=== PATIENT | male | born 2000 | race Caucasian/White ===

== ENCOUNTER 2018-09-16 23:24 | Emergency (ER) | payer OTHER ==
[~2018-09-16] VITALS: Ht 180.3 cm; Wt 108.9 kg
[~2018-09-16 23:24] MED LIST: AUGMENTIN 400 M1 CTB PO; CLARITIN10 MG PO; MEDROL DOSEPAK4 MG PO; MOTRIN CHI100 MG/5 M PO; MOTRIN400 MG PO; NAPROSYN500 MG PO; NKHM; TYLENOL500 MG PO
[2018-09-16 23:27] VITALS: BP 121/94
[2018-09-17] MEDS ORDERED: PREDNISONE50 MG PO (01:01)
[2018-09-17] MEDS ORDERED: CYCLOBENZAPRINE10 MG PO (01:01)
[2018-09-17] MEDS ORDERED: NAPROSYN500 MG PO (01:01)
== END 2018-09-17 01:46 | disposition home or self-care (01) ==
LOC: ED 23:24
DX: S40.021A Contusion of right upper arm, initial encounter (principal); M62.830 Muscle spasm of back; Z79.899 Other long term (current) drug therapy; V86.99XA Unspecified occupant of other special all-terrain or other off-road motor vehicle injured in nontraffic accident, initial encounter; Y93.89 Activity, other specified; Y92.89 Other specified places as the place of occurrence of the external cause; Y99.8 Other external cause status

== ENCOUNTER → 2020-02-26 | Outpatient (CLI) | payer BC ==
[~2020-02-26] MED LIST changes: +CYCLOBENZAPRINE10 MG PO; +PREDNISONE50 MG PO
== END | disposition home or self-care (01) ==
LOC: COVID19 00:18
DX: R06.02 Shortness of breath (principal); Z20.828 Contact with and (suspected) exposure to other viral communicable diseases

== ENCOUNTER → 2020-06-08 | Outpatient (CLI) | payer BC ==
[2020-06-08 07:01] LABS: HEMATOCRIT 46.1 % (42.0-52.0); MEAN CELL VOLUME 85.4 fl (80.0-94.0); MEAN CORPUSCULAR HGB 28.1 pg (27.0-31.0); MEAN PLATELET VOLUME 9.1 fl (9.6-12.3); RED BLOOD COUNT 5.4 10*6/uL (4.50-5.90); RED CELL DISTRI WIDTH 12.4 % (0-14.5); WHITE BLOOD COUNT 12.5 10*3/uL (4.8-10.8)
[2020-06-08 07:28] LABS: ALBUMIN 4.4 gm/dl (3.1-4.5); BUN 15 mg/dl (7-24); CHLORIDE 108 mmol/L (98-107); POTASSIUM 4.6 mmol/L (3.5-5.1); SODIUM 140 mmol/L (136-145)
[2020-06-08 07:37] LABS: ALKALINE PHOSPHATASE 87 U/L (45-117); CHOLESTEROL 187 mg/dL (<200); HDL CHOLESTEROL 37 mg/dl (40-60); LDL CHOLESTEROL 99 mg/dL (9-159); SGOT/AST 24 IU/L (3-35); SGPT/ALT 61 U/L (12-78); TOTAL PROTEIN 8.3 gm/dL (6.4-8.2); TRIGLYCERIDES 255 mg/dl (<150); VLDL CHOLESTEROL 51 mg/dL (6-40)
[2020-06-09 08:11] LABS: RHEUMATOID ARTHRITIS FACTOR <10.0 IU/mL (0.0-13.9)
== END | disposition home or self-care (01) ==
LOC: LAB 05:35
PROVIDERS: ATTEND Family Medicine
DX: M54.5 Low back pain (principal); M25.50 Pain in unspecified joint

== ENCOUNTER → 2020-07-26 | Outpatient (CLI) | payer BC | END | disposition home or self-care (01) | LOC: COVID19 10:28 | PROVIDERS: ATTEND Internal Medicine | DX: Z20.828 Contact with and (suspected) exposure to other viral communicable diseases (principal) ==

== ENCOUNTER → 2020-08-23 | Outpatient (CLI) | payer BC | END | disposition home or self-care (01) | LOC: COVID19 14:04 | PROVIDERS: ATTEND Internal Medicine | DX: Z20.828 Contact with and (suspected) exposure to other viral communicable diseases (principal) ==

== ENCOUNTER → 2021-07-19 | Outpatient (CLI) | payer BC | END | disposition home or self-care (01) | LOC: COVID19 17:07 | PROVIDERS: ATTEND Internal Medicine | DX: Z11.52 Encounter for screening for COVID-19 (principal) ==

== ENCOUNTER → 2021-09-02 | Outpatient (CLI) | payer BC | END | disposition home or self-care (01) | LOC: COVID19 15:46 | PROVIDERS: ATTEND Podiatrist Foot & Ankle Surgery | DX: U07.1 COVID-19 (principal) ==